=== PATIENT | female | born 1970 | race Caucasian/White ===

== ENCOUNTER 2022-10-22 09:18 | Outpatient (CLI) | payer BC, SELFPAY ==
--- NOTE | ~2022-10-22 | CT_ITS ---
EXAMINATION: CT LE LT wo con DATE: 10/22/2022 09:54 INDICATION: Left knee osteoarthritis for preoperative planning TECHNIQUE: High resolution computed tomography (CT) of the left lower limb from the hip through the a nkle was performed without intravenous contrast. Additional sagittal and coronal reconstructions were performed. Automated exposure control and iterative reconstruction technique were employed. The dose -length product was 1635.82 mGy-cm. COMPARISON: None FINDINGS: Bone alignment is normal. No fracture. Polyarticular osteoarthritis in the left lower limb, severe at the medial compartment of the right knee with remodeling of the anteromedial quadrant of the medial tibial plateau and moderate size marginal osteophytes. Additional osteoarthritis with moderate size m arginal osteophytes at both the lateral and patellofemoral compartments. Moderate osteoarthritis at t he proximal tibiofibular articulation. Mild osteoarthritis at the left hip, ankle and talonavicular j oint, the latter with associated subarticular cystlike changes. Small left knee joint effusion. Moder ate-sized Achilles calcaneal spur. Additional small enthesophytes at the patellar insertion of the qu adriceps tendon and anterolateral margin of the lateral malleolus. Soft tissues are unremarkable. No left pelvic or inguinal lymphadenopathy. IMPRESSION: 1. Tricompartmental osteoarthritis of the left knee, severe at the medial compartment. Reviewed, dictated and finalized at location A. IMPRESSION: 1. Tricompartmental osteoarthritis of the left knee, severe at the medial denae rtment.
--- NOTE | 2022-10-22 10:14 | ECG_ITS ---
Measurements Intervals [place] Rate: 60 P: -3 UT: 142 QRS: 50 QRSD: 88 T: 28 QT: 423 QTc: 423 Interpretive Statements SINUS RHYTHM BASELINE WANDER- I, II, III NORMAL ECG NO PREVIOUS ECG AVAILABLE FOR COMPARISON Electronically Signed On 10-22-2022 12:34:04 CDT by Jordon David D.O.
[2022-10-22 11:00] LABS: Hematocrit 40.6 % (37.0-47.0); Hemoglobin 12.9 g/dL (12.0-15.0)
[2022-10-22 11:09] LABS: Urine Cotinine NEGATIVE
[2022-10-22 11:11] LABS: Estimated Glomerular Filt Rate > 60; Glucose 85 mg/dL (65-110)
[2022-10-22 11:35] LABS: Hemoglobin A1C 4.9 % (<5.7)
== END 2022-10-22 09:19 | disposition home or self-care (01) ==
PROVIDERS: Visit Provider Orthopaedic Surgery
DX: M17.12 Unilateral primary osteoarthritis, left knee (principal)
CPT/HCPCS: 73700; 80307; 82040; 82565; 82947; 83036; 85014; 85018; 93005

== ENCOUNTER 2022-12-08 07:48 | Outpatient (CLI) | payer BC, SELFPAY ==
[2022-12-08 08:50] LABS: Basophils Percent Auto 0.8 % (0.2-1.2); Eosinophils Absolute Auto 0.1 K/mm3 (0-0.3); Eosinophils Percent Auto 1.9 % (0-4.4); Hematocrit 43.2 % (37.0-47.0); Hemoglobin 13.6 g/dL (12.0-15.0); Immature Granulocyte Absolute 0.01 K/mm3 (0.00-0.031); Immature Granulocyte Percent A 0.2 % (0-0.5); Lymphocytes Absolute Auto 1.53 K/mm3 (0.9-3.2); Lymphocytes Percent Auto 32.1 % (18.3-44.2); Mean Corpuscular HGB Conc 31.5 g/dl (32-36); Mean Corpuscular Hemoglobin 29.9 pg (26-34); Mean Corpuscular Volume 94.9 fl (80-100); Mean Platelet Volume 9.6 fl (7.4-10.4); Monocytes Absolute Auto 0.3 K/mm3 (0.1-0.6); Monocytes Percent Auto 6.5 % (2.6-8.5); Neutrophils Absolute Auto 2.8 K/mm3 (1.3-6.7); Neutrophils Percent Auto 58.5 % (45.5-73.1); Platelet Count Result 201 k/mm3 (150-375); Red Blood Count 4.55 M/mm3 (4.2-5.4); Red Cell Distribution Width 12.5 % (11.5-14.5); White Blood Count 4.8 K/mm3 (4.5-10.0)
[2022-12-08 08:59] LABS: Urine Cotinine NEGATIVE
[2022-12-08 09:00] LABS: Albumin Level 4.2 g/dL (3.5-5.1); Estimated Glomerular Filt Rate > 60; Glucose 91 mg/dL (65-110)
== END 2022-12-08 07:49 | disposition home or self-care (01) ==
LOC: ANHSURGERY 07:54
PROVIDERS: Visit Provider Orthopaedic Surgery
DX: Z01.812 Encounter for preprocedural laboratory examination (principal); M17.12 Unilateral primary osteoarthritis, left knee
CPT/HCPCS: 80307; 82040; 82565; 82947; 85025; 87081

== ENCOUNTER 2022-12-27 00:57 | Day surgery (SDC) | payer BC, SELFPAY ==
[2022-12-08 07:59] VITALS: BMI 32.1
--- NOTE | 2022-12-08 08:17 | PC.NURSE ---
Report to the Outpatient Waiting Room, entrance under the green pavilion located off [facility], at time _1000 on date _12/27/22 . Planned Procedure Time: __1200 . Time changes happen often and if your time is changed the preop area will call you the afternoon before. - You and your visitor will be asked to self-screen and do not enter if you have any COVID symptoms. - A mask is optional within the hospital at this time. Patients may have clear liquids (water, carbonated beverages, clear teas, apple juice) until 3 hours prior to surgery with a maximum of 20 ounces. - No food from midnight until time of surgery - Infants may have breast milk until 4 hours before surgery, formula 6 hours prior to surgery. - Children will be allowed to drink immediately following surgery. If applicable, please bring a bottle or sippy cup to assist with drinking. Juice, water, soda, and popsicles are readily available. For infants on formula, please bring formula the day of surgery. Pacifiers are allowed. Take the following medications with a SIP of water the morning of surgery: __TRAMADOL IF NEEDED FOR PAIN DO NOT STOP ANY OF YOUR OTHER PRESCRIPTION MEDICATIONS PRIOR TO SURGERY ?EXCEPT THE FOLLOWING Medications to discontinue per physician __HOLD TUMS 3 DAYS PRE OP .LAST DOSE 12/23/22 Please no make-up, nail romanian, hairspray, perfume, deodorant, or body powder the day of surgery. No jewelry (including any body piercings) or valuables the day of surgery, leave them at home. Please take a shower or bath the night before, or the morning of, surgery with an antibacterial soap. Wear comfortable, loose fitting clothing. Children are encouraged to wear pajamas. - Jewelry must be removed prior to entering the operating room. Rings and piercings that are not removed may be cut off. - The hospital will not accept responsibility for valuables. - Please leave all valuables, including medications, at home the day of surgery. If you are going home after surgery, a licensed pile driver must drive you home. - NO public transportation without another adult if you receive anesthesia. - We recommend that an adult stay with you for 24 hours following discharge. - We also recommend that you do not drive, make important decision, drink alcoholic beverages, or take any drugs that were not prescribed by your health care provider for at least 24 hours after your discharge time. For Pediatric surgeries, we recommend two adults accompany the child home. Follow any additional instructions given to you from your surgeon. If you or anyone in your household have experienced Covid symptoms in the past week, please notify your surgeon or the nurse liaison at the phone number below for possible testing. VERBAL AND WRITTEN instructions given to __PATIENT and asked if any additional questions and then verbalized understanding. Patient advised to call surgeon office or pre surgery nurse liaison [phone] if any additional questions.
[2022-12-08 08:33] VITALS: BP 118/81; PULSE 62; RESP 18; TEMP 37.3; O2SAT 100
[2022-12-27] VITALS (13 sets, daily range): BP systolic 105–127; BP diastolic 57–75; PULSE 60–91; RESP 11–16; TEMP 35.6–37.7; O2SAT 93–100
--- NOTE | ~2022-12-27 | XR_ITS ---
EXAM: [id number] DATE: 12/27/2022 15:18 HISTORY: POST OP LEFT KNEE . COMPARISON: None available. FINDINGS: Total knee arthroplasty hardware, in good position. Anterior soft tissue disruption and blake bcutaneous gas. No unexpected radiopaque foreign body. IMPRESSION: Expected postsurgical changes, with no radiographic evidence of procedure or hardware rel ated complication. Reviewed, dictated and finalized at location K. RESSOR STATION ENGINEER CHIEF IMPRESSION: Expected postsurgical changes, with no radiographic evidence of pro cedure or hardware related complication.
[2022-12-27] MEDS: ACETAMINOPHEN 500 MG TABLET 1000 MG PO ×2 (10:47→17:11)
[2022-12-27] MEDS: LACTATED RINGERS 1,000 ML 30 ML IV CONT ×2 (11:01→15:01)
[2022-12-27] MEDS: TRANEXAMIC ACID 1,000MG/ISO100 1,000 MG/100 ML BAG 200 MG IVPB (11:20)
--- NOTE | 2022-12-27 11:37 | WPDHPUPDATE1 ---
History and Physical Update Update Date/Time: 12/27/22 11:37 History and Physical has been reviewed, including an updated exam of the patient. There are NO changes in the patient's condition. Risks, benefits, and alternatives have been discussed and questions answered. Patient agrees to proceed with procedure.
--- NOTE | 2022-12-27 11:55 | P.PNAN_ITS ---
Anes - Initial Pre Proc Eval Procedure: Operation Date: 12/27/22 12:00 Proposed Procedures p Left Custom Total Knee Arthroplasty - Davy Wolfe MD Date/Time: 12/27/22 11:55 Surgeon: Davy Wolfe MD Pre Op Diagnosis: Prim O A Left Knee Patient Data Age: 52 Gender: F Height: 1.75 m Weight: 99.8 kg Last Vital Signs Temp 37.7 C H 12/27/22 11:07 Pulse 75 12/27/22 11:07 Resp 16 12/27/22 11:07 BP 105/64 12/27/22 11:07 Pulse Ox 100 12/27/22 11:07 O2 Del Method Room Air 12/27/22 11:07 Allergies Allergy/AdvReac Type Severity Reaction Status Date / Time No Known Allergies Allergy Unknown Verified 12/27/22 10:11 Home Medications Medication Instructions Recorded Confirmed Type calcium carbonate 200 mg calcium 200 mg PO BID 07/08/22 12/27/22 History (500 mg) chewable tablet (Tums) tramadol 50 mg tablet 50 mg PO Q6H PRN pain #30 tabs 11/18/22 12/27/22 Rx medroxyprogesterone 10 mg tablet 10 mg PO DAILY 12/08/22 12/27/22 History Patient hx anesthesia problems: none Family hx anesthesia problems: none Results Review: All pre-operative results and documents have been reviewed as part of the pre- operative evaluation. [facility] Past Medical History Medical History Hx of gastroesophageal reflux (GERD) (~2015) Hospitalized at [facility] Osteoporosis Surgical History Surgical History History of tooth extraction Family History Family History Father Diabetes mellitus Family history of chronic obstructive pulmonary disease Osteoarthritis Mother Family history of blood dyscrasia Osteoarthritis DVT (deep venous thrombosis) Sibling Asthma Grandparent Family history of malignant neoplasm of bone Social History Social History Smoking status: Never smoker Additional smoking assessment comments: DENIES ANY FORM OF TOBACCO USE Alcohol intake: never Lack of Transportation: No Lack of Food: Never True Current Housing: I Have Housing Concerned About Future Housing: No Difficulty Paying Gas/Electric Bills: No Difficulty Paying for Meds: No Currently Unemployed: No Education: Bachelor's Degree Difficulty w/ Childcare or Family Care: No Living arrangements: alone Spiritual care concerns: No Anes - Eval Final PreProcedure Day of Procedure 12/27/22 11:55 Patient weight: overweight Heart: regular rate and rhythm Lungs: clear to auscultation Airway: Mallampati scale class II Neurological: alert and oriented Last oral intake: >/= 8 hours ASA classification: II Emergent: no Anesthetic plan: proceed Anesthesia type and monitoring: general LMA and standard monitoring Results Review: All pre-operative results and documents have been reviewed as part of the pre- operative evaluation. Informed Consent: The patient's anesthetic plan and its attendant risks and benefits were discussed with the patient/family/POA. Questions were solicited and answers provided to the satisfaction of the patient/family/POA.
--- NOTE | 2022-12-27 12:18 | WPDANESPNB ---
Anes - Peripheral Nerve Block Date/Time: 12/27/22 12:18 I have discussed with the patient/family/POA the placement of a peripheral nerve block for post-operative pain management, including associated risks, benefits, complications, and side effects. Alternative methods of post-operative analgesia were detailed. Questions were solicited and answers provided to the satisfaction of the patient/family/POA. Time-Out: A pre-procedural Time-Out was completed immediately before starting the procedure and confirmed: Patient Identification, Site, Procedure, Patient Position and the Availability of Requisite Equipment. Clinical Indications: Acute post-operative pain management requested by the operative surgeon. Nerve Block Insertion Note Anes-nerve block: adductor canal left Patient position: supine Skin prep: chlorhexidine Needle: 22 gauge, stimulating, insulated echogenic needle. Needle length: 80 mm Technique: ultrasound Technique comment: mid2mg [id number] Injectate: bupivacaine 0.5% with epi 5 mcg/ml (30ml no epi ) and dexamethasone (mg) (4) Observations: tolerated well Complications: none Procedure start time:: 1200 Procedure end time:: 1207
[2022-12-27] MEDS: ceFAZolin 2 GM/D5W 50 ML 2 GM/50 ML BAG IVPB ×2 (12:19→20:35)
[2022-12-27] MEDS: GENTAMICIN BONE CEMENT REFOBACIN 1 EACH TOPICAL (13:01)
--- NOTE | 2022-12-27 14:46 | P.OP_ITS ---
Procedure Note - Detailed Date of Procedure 12/27/22 Pre-op Diagnosis Prim O A Left Knee Post-op Diagnosis Same Procedure Performed Total knee arthroplasty, left knee. Surgeon Davy Wolfe MD Human Services Supervisor Lizett Ramirez PA-C Anesthesia General and Regional (Subsartorial block.) Findings Physiologic laxity with slight hyperextension. -2 tibia resection. PCL quality excellent with minimal release. Description of Procedure Preoperative antibiotics were given. The limb was prepped and draped in the usual sterile fashion with a well-padded tourniquet high on the thigh. The limb was exsanguinated and the tourniquet inflated to 300 mmHg. A longitudinal incision was created just medial to the patella. A trivector approach to the knee was performed. Arthrotomy was taken down through the joint capsule. No significant releases were initially taken. The femur was exposed and the F1 jig was applied. The coring tool was used to remove the cartilage for the F2 jig to sit flush with the bone. The jig was pinned and the distal cut carefully taken. Caliper measurements confirmed appropriate bony resections according to the preoperative templated plan. The F4 cutting jig for the femur was applied, at the standard rotation. The AP and anterior chamfer cuts were taken. The F5 jig was applied and the posterior chamfer cuts were taken. The tibia was prepared using the T1 jig, after removing cartilage for the jig contact points. Proper alignment was checked with the alignment zoe. The tibia was cut using the T1u guide. Gap balancing was performed. Gap measurements were taken and the knee was trialed. Excellent alignment and soft tissue balancing was confirmed. The posterior cruciate ligament was recessed along the proximal tibia. The patella was cut for resurfacing. Three lug holes were drilled. Meniscal remnants were removed. The trial components were assembled. Excellent range of motion and proper soft tissue balancing were confirmed throughout the full range of motion. Patellar tracking was excellent. The knee was copiously irrigated periodically throughout the procedure. The real implants were cemented into position. Excess cement was carefully removed. The wound was closed in layers with interrupted #1 Vicryl suture, #2 strata fix suture, 2-0 strata fix suture, 3-0 strata fix suture. Steri-Strips placed on the skin with the knee flexed. Sterile bulky dressing applied. The patient was brought to the recovery room in stable condition. There were no complications. Physician assistant director of plant operations, Lizett Ramirez PA-C, required for surgery; including patient positioning, draping, tissue retraction, maintaining instrument position, cement removal, wound closure, and dressing placement. Implants Conform[employer] Imprint total knee arthroplasty. Cemented. Cruciate retaining. 8 mm insert. 35 mm round patella. Estimated Blood Loss 200 Drains No Complications No immediate complications Condition Stable Disposition PACU [facility] Billing Surgery - Charge Forward: Surgery Billing
[2022-12-27] MEDS: fentaNYL CITRATE INJ (*CRX) 100 MCG/2 ML VIAL 25 MCG IV PUSH ×4 (15:14→15:27)
[2022-12-27] MEDS: ONDANSETRON INJ 4 MG/2 ML VIAL IV PUSH ×2 (15:25→19:00)
[2022-12-27] MEDS: diphenhydrAMINE HCl INJ 50 MG/ML VIAL 25 MG IV PUSH (15:30)
[2022-12-27] MEDS: SCOPOLAMINE 1.5 MG PATCH TRANSDERM (15:53)
[2022-12-27] MEDS: HYDROmorphone HCL INJ (*CRX) 1 MG/ML SYR 0.5 MG IV PUSH ×2 (16:23→16:31)
--- NOTE | 2022-12-27 16:45 | PC.NURSE ---
This patient, Shawnee Tidwell, was admitted to 3 [facility] Surg Room 302-01. Patient/family oriented to hospital policies and general routines including ID bracelet, bed and alarms, visiting hours, pain management, procedures, bathroom and other care routines, personal items, smoking policy, room service/diet, and visiting hours. Information on how to activate the Rapid Response Team has been discussed. Patient/Family are encouraged to report perceived risks to care and to ask questions if they do not understand what they are told or what they should do.
[2022-12-27] MEDS: SODIUM CHLORIDE 0.9% IV 1,000 ML 125 ML IV CONT (16:59)
[2022-12-27] MEDS: CALCIUM CARBONATE (TUMS) 500 MG (200 MG ELEMENTAL) PO (17:00)
[2022-12-27] MEDS: MELOXICAM 7.5 MG TABLET PO (17:11)
[2022-12-27] MEDS: ASPIRIN 81 MG ENTERIC TABLET PO (17:11)
[2022-12-27] MEDS: oxyCODONE HCL (*CRX) 5 MG TAB IR PO (22:20)
[2022-12-28] VITALS: BP 90/49; PULSE 64; RESP 14; TEMP 36.7; O2SAT 96
[2022-12-28] MEDS: ACETAMINOPHEN 500 MG TABLET 1000 MG PO ×3 (00:18→11:39)
[2022-12-28] MEDS: ceFAZolin 2 GM/D5W 50 ML 2 GM/50 ML BAG IVPB ×2 (03:33→11:40)
--- NOTE | 2022-12-28 03:52 | PC.NURSE ---
Pt tolerating using SaraStedy well without difficulties throughout the night to be transported to bathroom. 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 Pt states she feels great. Pt moving around in bed well and participates in self care. Pt tolerating diet well without difficulties.
[2022-12-28 04:00] VITALS: BP 93/64; PULSE 66; RESP 16; TEMP 37.2; O2SAT 99
[2022-12-28 07:14] LABS: Basophils Percent Auto 0.2 % (0.2-1.2); Hematocrit 36.9 % (37.0-47.0); Hemoglobin 11.3 g/dL (12.0-15.0); Immature Granulocyte Absolute 0.05 K/mm3 (0.00-0.031); Immature Granulocyte Percent A 0.5 % (0-0.5); Lymphocytes Absolute Auto 1.01 K/mm3 (0.9-3.2); Lymphocytes Percent Auto 9.2 % (18.3-44.2); Mean Corpuscular HGB Conc 30.6 g/dl (32-36); Mean Corpuscular Hemoglobin 29.6 pg (26-34); Mean Corpuscular Volume 96.6 fl (80-100); Monocytes Absolute Auto 0.6 K/mm3 (0.1-0.6); Monocytes Percent Auto 5.5 % (2.6-8.5); Neutrophils Absolute Auto 9.3 K/mm3 (1.3-6.7); Neutrophils Percent Auto 84.6 % (45.5-73.1); Platelet Count Result 187 k/mm3 (150-375); Red Blood Count 3.82 M/mm3 (4.2-5.4); Red Cell Distribution Width 12.6 % (11.5-14.5)
[2022-12-28 07:28] LABS: Anion Gap 3 mmol/L (8-16); Blood Urea Nitrogen 12 mg/dL (7-17); Calcium 8.6 mg/dL (8.4-10.2); Carbon Dioxide 26 mmol/L (22-30); Chloride 106 mmol/L (98-107); Estimated CRCL calculation 103 ml/min; Estimated Glomerular Filt Rate > 60; Glucose 90 mg/dL (65-110); Potassium 4.1 mmol/L (3.4-5.0); Sodium 135 mmol/L (137-145)
[2022-12-28 08:00] VITALS: BP 99/63; PULSE 75; RESP 16; TEMP 36.3; O2SAT 97
--- NOTE | 2022-12-28 08:04 | P.PNAN_ITS ---
Anes - Prog Note Post-Op Date/Time: 12/28/22 08:04 Cardiovascular status: normal Respiratory status: normal Airway patency: baseline Mental status: baseline Post-Op hydration status: normal Vital Signs: Last Vital Signs Temp 37.2 C 12/28/22 04:00 Pulse 66 12/28/22 04:00 Resp 16 12/28/22 04:00 BP 93/64 L 12/28/22 04:00 Pulse Ox 99 12/28/22 04:00 O2 Del Method Room Air 12/27/22 20:00 O2 Flow Rate 6 12/27/22 15:01 Pain Score (VAS): 0 I/O: Intake & Output 12/27/22 12/28/22 12/28/22 23:59 07:59 15:59 Intake Total 950 1050 Balance 950 1050 Laboratory Tests 12/28/22 06:15 12/28/22 06:15 12/27/22 12/28/22 11:03 06:15 WBC 11.0 H RBC 3.82 L Hgb 11.3 L Hct 36.9 L MCV 96.6 MCH 29.6 MCHC 30.6 L RDW 12.6 Plt Count 187 MPV 10.0 Immature Gran % (Auto) 0.5 Neut % (Auto) 84.6 H Lymph % (Auto) 9.2 L [place] % (Auto) 5.5 Eos % (Auto) 0.0 Baso % (Auto) 0.2 Lymph # (Auto) 1.01 [place] # (Auto) 0.6 Eos # (Auto) 0.0 Baso # (Auto) 0.0 Abs Immat Gran (auto) 0.05 H Absolute Neuts (auto) 9.3 H Absolute Nucleated RBC 0.0 Nucleated RBC % 0.0 Sodium 135 L Potassium 4.1 Chloride 106 Carbon Dioxide 26 Anion Gap 3 L BUN 12 Creatinine 0.70 Estim Creat Clear Calc 103 Estimated GFR > 60 Glucose 90 Calcium 8.6 Blood Type O Positive Antibody Screen Negative Post-procedural complaints: none Patient Feedback: Patient satisfied with anesthetic care.
[2022-12-28] MEDS: ASPIRIN 81 MG ENTERIC TABLET PO (08:53)
[2022-12-28] MEDS: MELOXICAM 7.5 MG TABLET PO (08:53)
[2022-12-28] MEDS: SENNA/DOCUSATE SODIUM TABLET 2 TAB PO (08:54)
[2022-12-28] MEDS: CALCIUM CARBONATE (TUMS) 500 MG (200 MG ELEMENTAL) PO (08:54)
[2022-12-28] MEDS: polyethylene glycoL 3350 17 GM POWD.PACK PO (08:56)
[2022-12-28] MEDS: predniSONE 5 MG TABLET PO (08:56)
--- NOTE | 2022-12-28 10:21 | PM.DS ---
DS: Admitting Diagnosis Discharge Date 12/28/22 Admitting Diagnosis OA knee Left DS: Discharge Diagnosis Discharge Diagnosis (1) Status post total left knee replacement: Code(s): Z96.652 - Presence of left artificial knee joint Status: Acute Assessment and Plan: Postop day 1: Left total knee arthroplasty. Patient tolerated procedure well. No complications. Pain manageable with pain medication. No numbness or tingling. We had a lengthy discussion regarding postoperative wound care, limitations, expectations, and exercises. Patient shows good understanding. She has had initial physical therapy and is tolerating it well. DVT prophylaxis: 81 mg baby aspirin b.i.d. for 14 days. Pain medication: Percocet. Patient has followup appointment with Dr. Wolfe in 3 weeks. DS: Summary Hospital Course Reason for hospitalization: Total knee arthroplasty Hospital Course: Patient tolerated procedure well. Has had initial PT/OT. Status at Discharge Functional status at discharge: uses cane/walker Overall status at discharge: patient is progressing back to baseline Time Spent with Patient Time attestation: Total time spent providing and/or coordinating discharge services: Exam Narrative: 52-year-old overweight female. Resting comfortably in bed. Alert and oriented x3. No acute distress. Wearing compression socks bilaterally. Dressing intact without drainage. Moderate swelling. No ecchymosis. Mild erythema. No hematoma. Range of motion limited due to pain. Calf nontender. Neurologic status intact. No varicosities. Distal pulses palpable. DS: Data Data Completed and Pending Labs on day of discharge: Labs from last 24 hours 12/28/22 12/27/22 06:15 11:03 WBC 11.0 H RBC 3.82 L Hgb 11.3 L Hct 36.9 L MCV 96.6 MCH 29.6 MCHC 30.6 L RDW 12.6 Plt Count 187 MPV 10.0 Immature Gran % (Auto) 0.5 Neut % (Auto) 84.6 H Lymph % (Auto) 9.2 L [place] % (Auto) 5.5 Eos % (Auto) 0.0 Baso % (Auto) 0.2 Lymph # (Auto) 1.01 [place] # (Auto) 0.6 Eos # (Auto) 0.0 Baso # (Auto) 0.0 Abs Immat Gran (auto) 0.05 H Absolute Neuts (auto) 9.3 H Absolute Nucleated RBC 0.0 Nucleated RBC % 0.0 Sodium 135 L Potassium 4.1 Chloride 106 Carbon Dioxide 26 Anion Gap 3 L BUN 12 Creatinine 0.70 Estim Creat Clear Calc 103 Estimated GFR > 60 Glucose 90 Calcium 8.6 Blood Type O Positive Antibody Screen Negative Discharge Plan Discharge Patient Disposition: Home, Self-Care Discharge Instructions: See green instruction sheets Remove the Scopolamine patch that was placed behind your ear in 72 hours or less. Wash your hands after touching. Stand Alone Forms: General Discharge Instructions Follow-up/Referrals: Lizett Ramirez PA [Physician Shearing Machine Tender] - Discharge Medications: New meloxicam 15 mg tablet 15 mg PO DAILY Qty: 30 0RF Rx Instructions: Cut in half. Take 1/2 in morning and 1/2 at night. Take with food. Stop if stomach upset. prednisone 5 mg tablet 5 mg PO DAILY 21 Days Qty: 21 0RF aspirin 81 mg tablet,delayed release (DR/EC) 81 mg PO BID 14 Days Qty: 28 0RF oxycodone-acetaminophen 5-325 mg tablet 1 - 2 tablet PO Q4-6H MDD 6 PRN (Reason: pain) Qty: 30 0RF Continued calcium carbonate [Tums] 200 mg calcium (500 mg) tablet,chewable 200 mg PO BID medroxyprogesterone 10 mg tablet 10 mg PO DAILY tramadol 50 mg tablet 50 mg PO Q6H PRN (Reason: pain) Qty: 30 0RF
[2022-12-28 11:57] VITALS: BP 121/67; PULSE 77; RESP 16; TEMP 36.6; O2SAT 100
== END 2022-12-28 13:20 | disposition home or self-care (01) ==
LOC: ANHSURGERY 15:45 → ANH3MEDSUR 16:38
PROVIDERS: Physician Assistant Surgical; Visit Provider Orthopaedic Surgery
PROC: (CPT 27447; principal; 2022-12-27 12:00)
DX: M17.12 Unilateral primary osteoarthritis, left knee (principal); G89.18 Other acute postprocedural pain; Z79.899 Other long term (current) drug therapy
CPT/HCPCS: 27447; 64447; 36415; 73560; 80048; 80307; 82040; 82565; 82947; 85025; 86850; 86900; 86901; 87081; 97110; 97161; 97165; 97530; A9270; C1713; C1776; J0171; J0690; J1100; J1170; J1200; J1885; J2250; J2270; J2405; J2704; J2795; J3010; J7030; J7120; J7512

== ENCOUNTER 2023-01-31 11:42 | Outpatient (CLI) | payer BC, SELFPAY ==
--- NOTE | ~2023-01-31 | MM_ITS ---
EXAMINATION: MM screening [place] BI w shannan HISTORY: Screening TECHNIQUE: Craniocaudal and mediolateral oblique 3-D tomosynthesis images were obtained and synthetic 2-D images were generated. CAD analysis was submitted and interpreted. COMPARISON: No prior mammogram is available for comparison at this institution. BREAST PARENCHYMAL COMPOSITION: There are scattered areas of fibroglandular density. FINDINGS: There is no evidence of suspicious mass, calcification, or architectural distortion to sugg est malignancy in either breast. There has been no suspicious interval change. IMPRESSION: 1. No mammographic evidence of malignancy. 2. Recommend routine screening mammography in one year. BI-RADS Category 1: Negative Reviewed, dictated and finalized at location A. D SPECIALIST
== END 2023-01-31 11:43 | disposition home or self-care (01) ==
LOC: ANHIMG 11:43
PROVIDERS: Visit Provider Obstetrics & Gynecology
DX: Z12.31 Encounter for screening mammogram for malignant neoplasm of breast (principal)
CPT/HCPCS: 77063; 77067

== ENCOUNTER 2023-02-16 10:30 | Outpatient (CLI) | payer BC, SELFPAY ==
--- NOTE | ~2023-02-16 | XR_ITS ---
EXAMINATION: XR knee LT 3V DATE: 02/16/2023 10:51 INDICATION: Left knee arthroplasty. Postop. TECHNIQUE: 3 views of left knee including standing views were obtained. COMPARISON: Left knee radiographs 01/17/2023 FINDINGS: There is a total left knee arthroplasty with patellar resurfacing in near-anatomic alignmen t. No fracture. No periprosthetic lucency to suggest loosening or infection. No knee joint effusion. IMPRESSION: 1. Total left knee arthroplasty in near-anatomic alignment. Reviewed, dictated and finalized at location E. UCE LABORER
== END 2023-02-16 10:31 | disposition home or self-care (01) ==
LOC: ANHIMG 10:35
PROVIDERS: Visit Provider Orthopaedic Surgery
DX: Z47.1 Aftercare following joint replacement surgery (principal)
CPT/HCPCS: 73562

== ENCOUNTER 2023-04-18 08:24 | Outpatient (CLI) | payer BC, SELFPAY ==
--- NOTE | ~2023-04-18 | XR_ITS ---
EXAMINATION: XR knee RT min 4V DATE: 04/18/2023 08:45 INDICATION: Right knee pain TECHNIQUE: Four views of the right knee were obtained. COMPARISON: None. FINDINGS: Alignment is normal. No acute fracture or osteochondral lesion. And old healed fracture of the proximal fibula is noted. There is tricompartmental osteoarthritis of the right knee, severe in t he patellofemoral compartment. No joint effusion/synovitis. Soft tissues are unremarkable. IMPRESSION: 1. Osteoarthritis without acute osseous abnormality. Reviewed, dictated and finalized at location B. OF MEN
--- NOTE | ~2023-04-18 | XR_ITS ---
Left Knee Technique: AP, lateral, and sunrise views were obtained. Clinical History: Prosthesis COMPARISON: 02/16/2023 Findings: No fracture or dislocation is seen. Osseous alignment is anatomic. Left knee arthroplasty i ntact. Soft tissues are unremarkable. No joint effusion is seen. Impression: No acute abnormality. Left knee arthroplasty. Reviewed, dictated and finalized at location . ERY STARTER Impression: No acute abnormality. Left knee arthroplasty.
== END 2023-04-18 08:25 | disposition home or self-care (01) ==
LOC: ANHIMG 08:27
PROVIDERS: Visit Provider Orthopaedic Surgery
DX: M17.11 Unilateral primary osteoarthritis, right knee (principal); Z96.652 Presence of left artificial knee joint
CPT/HCPCS: 73562; 73564

== ENCOUNTER 2023-05-10 07:41 | Outpatient (CLI) | payer BC, SELFPAY ==
--- NOTE | ~2023-05-10 | CT_ITS ---
EXAMINATION: CT LE RT wo con DATE: 05/10/2023 08:06 INDICATION: Primary osteoarthritis of the right knee for preoperative planning TECHNIQUE: High resolution computed tomography (CT) of the right lower extremity from the hip through the ankle was performed without intravenous contrast. Additional sagittal and coronal reconstruction s were performed. Automated exposure control and iterative reconstruction technique were employed. Th e dose-length product was 1909.73 mGy-cm. COMPARISON: None FINDINGS: Bone alignment is normal. No fracture. There is a chronic subtle expansile sclerotic lesion which ext ends for 9 cm proximal to distal filling the intramedullary space of the proximal right fibula can be seen dating back to radiograph dated 07/23/2022. 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 No other suspicious lytic or blastic b one lesions. Marginal osteophytes consistent with osteoarthritis involving all 3 compartments of the right knee. There is mild joint space narrowing in the medial and lateral compartments which could be underestimated on nonweightbearing imaging. A couple heterotopic ossicles versus degenerative loose osteochondral bodies along the superolateral rim of the patella. No right knee joint effusion. Additi onal mild polyarticular osteoarthritis at the right hip, ankle and a few joints in the right midfoot . More severe osteoarthritis at the second tarsal metatarsal and second and third intermetatarsal denzel nts with subarticular cystic change at the base of the second metatarsal. Visualized pelvis is unrema rkable. No pathologically enlarged pelvic or inguinal lymphadenopathy. Musculature of the right leg i s unremarkable. IMPRESSION: 1. Polyarticular osteoarthritis throughout the right lower limb including tricompartmental osteoarthr itis at the right knee and moderate osteoarthritis with subarticular cystic change at the right midfo ot. 2. 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 Reviewed, dictated and finalized at location A. IMPRESSION: 1. Polyarticular osteoarthritis throughout the right lower limb including trico mpartmental osteoarthritis at the right knee and moderate osteoarthritis with s ubarticular cystic change at the right midfoot. 2. 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
== END 2023-05-10 07:42 | disposition home or self-care (01) ==
PROVIDERS: Visit Provider Orthopaedic Surgery
DX: M17.11 Unilateral primary osteoarthritis, right knee (principal)
CPT/HCPCS: 73700

== ENCOUNTER 2023-07-13 08:48 | Outpatient (CLI) | payer BC, SELFPAY ==
[2023-07-13 09:10] LABS: Hematocrit 43.9 % (37.0-47.0); Hemoglobin 13.6 g/dL (12.0-15.0)
[2023-07-13 09:23] LABS: Albumin Level 4.2 g/dL (3.5-5.1); Estimated Glomerular Filt Rate > 60; Glucose 87 mg/dL (65-110)
[2023-07-13 09:51] LABS: Basophils Percent Auto 0.9 % (0.2-1.2); Eosinophils Absolute Auto 0.1 K/mm3 (0-0.3); Eosinophils Percent Auto 1.7 % (0-4.4); Immature Granulocyte Absolute 0.01 K/mm3 (0.00-0.031); Immature Granulocyte Percent A 0.2 % (0-0.5); Lymphocytes Absolute Auto 1.05 K/mm3 (0.9-3.2); Lymphocytes Percent Auto 22.5 % (18.3-44.2); Mean Corpuscular HGB Conc 31.4 g/dl (32-36); Mean Corpuscular Hemoglobin 29.7 pg (26-34); Mean Corpuscular Volume 94.7 fl (80-100); Mean Platelet Volume 9.7 fl (7.4-10.4); Monocytes Absolute Auto 0.3 K/mm3 (0.1-0.6); Neutrophils Absolute Auto 3.2 K/mm3 (1.3-6.7); Neutrophils Percent Auto 68.7 % (45.5-73.1); Platelet Count Result 225 k/mm3 (150-375); Red Blood Count 4.54 M/mm3 (4.2-5.4); Red Cell Distribution Width 12.7 % (11.5-14.5); White Blood Count 4.7 K/mm3 (4.5-10.0)
[2023-07-13 10:06] LABS: Hemoglobin A1C 4.8 % (<5.7)
[2023-07-13 11:25] LABS: Urine Cotinine NEGATIVE
[2023-07-13 12:41] LABS: MRSA (PCR) NOT DETECTED (NOT DETECTE)
== END 2023-07-13 08:49 | disposition home or self-care (01) ==
LOC: ANHLAB 08:50
PROVIDERS: Visit Provider Orthopaedic Surgery
DX: Z01.818 Encounter for other preprocedural examination (principal); M17.11 Unilateral primary osteoarthritis, right knee
CPT/HCPCS: 36415; 80307; 82040; 82565; 82947; 83036; 85025; 87641

== ENCOUNTER 2023-08-08 01:21 | Day surgery (SDC) | payer BC, SELFPAY ==
--- NOTE | 2023-07-13 09:56 | PC.NURSE ---
Report to the Outpatient Waiting Room, entrance under the green pavilion located off [facility], at time __10:00AM on date ___08/08/23____. Planned Procedure Time: __12:00PM . Time changes happen often and if your time is changed the preop area will call you the afternoon before. - You and your visitor will be asked to self-screen and do not enter if you have any COVID symptoms. - A mask is optional within the hospital at this time. Patients may have clear liquids (water, carbonated beverages, clear teas, apple juice) until 3 hours prior to surgery with a maximum of 20 ounces. - No food from midnight until time of surgery. Take the following medications with a SIP of water the morning of surgery: ____NONE DO NOT STOP ANY OF YOUR OTHER PRESCRIPTION MEDICATIONS PRIOR TO SURGERY ?EXCEPT THE FOLLOWING Medications to discontinue per physician ____HOLD ALL NSAIDS(IBUPROFEN) 7 DAYS PRE-OP PER DR MENDOZA Date to take last dose 07/31/23 Please no make-up, nail divehi, hairspray, perfume, deodorant, or body powder the day of surgery. No jewelry (including any body piercings) or valuables the day of surgery, leave them at home. Please take a shower or bath the night before, or the morning of, surgery with an antibacterial soap. Wear comfortable, loose fitting clothing. - Jewelry must be removed prior to entering the operating room. Rings and piercings that are not removed may be cut off. - The hospital will not accept responsibility for valuables. - Please leave all valuables, including medications, at home the day of surgery. If you are going home after surgery, a licensed street flusher driver must drive you home. - NO public transportation without another adult if you receive anesthesia. - We recommend that an adult stay with you for 24 hours following discharge. - We also recommend that you do not drive, make important decision, drink alcoholic beverages, or take any drugs that were not prescribed by your health care provider for at least 24 hours after your discharge time. Follow any additional instructions given to you from your surgeon. If you or anyone in your household have experienced Covid symptoms in the past week, please notify your surgeon or the nurse liaison at the phone number below for possible testing. Telephone instructions given to ___PATIENT and asked if any additional questions and then verbalized understanding. Patient advised to call surgeon office or pre surgery nurse liaison [phone] if any additional questions.
[2023-07-13 10:10] VITALS: BP 113/66; PULSE 65; RESP 16; TEMP 37.2; O2SAT 100; BMI 34.4
[2023-08-08] VITALS (13 sets, daily range): BP systolic 101–144; BP diastolic 53–81; PULSE 60–101; RESP 9–20; TEMP 36.2–36.7; O2SAT 66–100
--- NOTE | ~2023-08-08 | XR_ITS ---
EXAMINATION: [id number] DATE: 08/08/2023 15:17 INDICATION: Postoperative evaluation following right total knee arthroplasty. TECHNIQUE: Anteroposterior and lateral views of the right knee were obtained. COMPARISON: CT dated 05/10/2023 FINDINGS: Right total knee arthroplasty with patellar resurfacing appears well seated and in near anatomic alig nment. No acute fractures identified. Mildly expansile nonaggressive lucent lesion in the proximal fi bula with narrow zone of transition and groundglass matrix, bladder appreciated on prior CT consisten t with fibrous dysplasia. Expected postoperative subcutaneous and intra-articular gas. IMPRESSION: 1. Right total knee arthroplasty, negative for postoperative purposes. 2. Fibrous dysplasia the proximal right fibula. Reviewed, dictated and finalized at location A.
[2023-08-08] MEDS: ACETAMINOPHEN 500 MG TABLET 1000 MG PO (11:32)
--- NOTE | 2023-08-08 11:40 | WPDHPUPDATE1 ---
History and Physical Update Update Date/Time: 08/08/23 11:40 History and Physical has been reviewed, including an updated exam of the patient. There are NO changes in the patient's condition. Risks, benefits, and alternatives have been discussed and questions answered. Patient agrees to proceed with procedure.
--- NOTE | 2023-08-08 11:56 | WPDANESEPPF ---
Anes - Initial Pre Proc Eval Procedure: Operation Date: 08/08/23 12:00 Proposed Procedures p Custom Right Total Knee Arthroplasty - Davy Wolfe MD Date/Time: 08/08/23 11:56 Surgeon: Davy Wolfe MD Pre Op Diagnosis: Prim O A Rt Knee Patient Data Age: 53 Gender: F Height: 1.73 m Weight: 102.8 kg Last Vital Signs Temp 99.0 F 07/13/23 10:10 Pulse 65 07/13/23 10:10 Resp 16 07/13/23 10:10 BP 113/66 07/13/23 10:10 Pulse Ox 100 07/13/23 10:10 O2 Del Method Room Air 07/13/23 10:10 Allergies Allergy/AdvReac Type Severity Reaction Status Date / Time No Known Allergies Allergy Unknown Verified 08/08/23 11:11 Home Medications Medication Instructions Recorded Confirmed Type medroxyprogesterone 10 mg tablet 10 mg PO DAILY 12/08/22 07/13/23 History acetaminophen 500 mg tablet 1,000 mg PO Q6H PRN Pain 07/13/23 07/13/23 History (Acetaminophen Extra Strength) calcium carbonate 500 mg PO BID PRN Indigestion 07/13/23 07/13/23 History ibuprofen 800 mg tablet 800 mg PO TID PRN Pain 07/13/23 07/13/23 History Patient hx anesthesia problems: none Family hx anesthesia problems: none Results Review: All pre-operative results and documents have been reviewed as part of the pre-operative evaluation. [facility] Past Medical History Medical History Hx of gastroesophageal reflux (GERD) (~2015) Hospitalized at [facility] Osteoporosis Surgical History Surgical History History of tooth extraction Status post total left knee replacement (~12/27/22) Family History Family History Father Diabetes mellitus Family history of chronic obstructive pulmonary disease Osteoarthritis Mother Family history of blood dyscrasia Osteoarthritis DVT (deep venous thrombosis) Sibling Asthma Grandparent Family history of malignant neoplasm of bone Social History Social History Smoking status: Never smoker Additional smoking assessment comments: DENIES ANY FORM OF TOBACCO USE Alcohol intake: never Substance use: never Do You Feel Safe in your Home?: Yes Lack of Transportation: No Lack of Food: Never True Current Housing: I Have Housing Concerned About Future Housing: No Difficulty Paying Gas/Electric Bills: No Difficulty Paying for Meds: No Currently Unemployed: No Education: Bachelor's Degree Difficulty w/ Childcare or Family Care: Decline to Answer Living arrangements: alone Spiritual care concerns: No Anes - Eval Final PreProcedure Day of Procedure 08/08/23 11:56 Patient weight: obese Heart: regular rate and rhythm Lungs: clear to auscultation Airway: Mallampati scale class II Neurological: alert and oriented Last oral intake: >/= 8 hours ASA classification: II Emergent: no Anesthetic plan: proceed Anesthesia type and monitoring: general LMA and standard monitoring Results Review: All pre-operative results and documents have been reviewed as part of the pre-operative evaluation. Osteoporosis, GERD, overall well controlled. Informed Consent: The patient's anesthetic plan and its attendant risks and benefits were discussed with the patient/family/POA. Questions were solicited and answers provided to the satisfaction of the patient/family/POA.
[2023-08-08] MEDS: LACTATED RINGERS 1,000 ML 30 ML IV CONT ×2 (11:58→15:06)
[2023-08-08] MEDS: TRANEXAMIC ACID 1,000MG/ISO100 1,000 MG/100 ML BAG 200 MG IVPB (12:11)
--- NOTE | 2023-08-08 12:29 | WPDANESPNB ---
Anes - Peripheral Nerve Block Date/Time: 08/08/23 12:29 I have discussed with the patient/family/POA the placement of a peripheral nerve block for post-operative pain management, including associated risks, benefits, complications, and side effects. Alternative methods of post-operative analgesia were detailed. Questions were solicited and answers provided to the satisfaction of the patient/family/POA. Time-Out: A pre-procedural Time-Out was completed immediately before starting the procedure and confirmed: Patient Identification, Site, Procedure, Patient Position and the Availability of Requisite Equipment. Clinical Indications: Acute post-operative pain management requested by the operative surgeon. Nerve Block Insertion Note Anes-nerve block: adductor canal right Patient position: supine Skin prep: chlorhexidine Needle: 22 gauge, stimulating, insulated echogenic needle. Needle length: 80 mm Technique: ultrasound Injectate: other (Bupiv 0.5%, 15 mls. ) Observations: tolerated well Procedure start time:: 1220 Procedure end time:: 122
[2023-08-08] MEDS: ceFAZolin 2 GM/D5W 50 ML 2 GM/50 ML BAG IVPB ×2 (12:32→20:36)
[2023-08-08] MEDS: SODIUM CHLORIDE 0.9% IV 37.7 ML, MORPHINE SULFATE INJ (*CRX) 2 MG, ROPivacaine HCL 1% 2... INFILTRATE (13:20)
[2023-08-08] MEDS: fentaNYL CITRATE INJ (*CRX) 100 MCG/2 ML VIAL 25 MCG IV PUSH ×5 (15:14→16:06)
[2023-08-08] MEDS: ONDANSETRON INJ 4 MG/2 ML VIAL IV PUSH ×2 (15:33→17:15)
--- NOTE | 2023-08-08 15:39 | P.OP_ITS ---
Procedure Note - Detailed Date of Procedure 08/08/23 Pre-op Diagnosis Prim O A Rt Knee Post-op Diagnosis Same Procedure Performed Total knee arthroplasty, right. Surgeon Davy Wolfe MD Tester Compressed Gases Lizett Ramirez PA-C Anesthesia General and Regional (Subsartorial block.) Findings Severe patellofemoral disease and significant cartilage breakdown of the medial and lateral femoral condyles. Custom knee with an optimal fit. Partial PCL release. Description of Procedure Preoperative antibiotics were given. The limb was prepped and draped in the usual sterile fashion with a well-padded tourniquet high on the thigh. The limb was exsanguinated and the tourniquet inflated to 300 mmHg during the exposure and cementation. A longitudinal incision was created just medial to the patella. A subvastus approach to the knee was performed. Arthrotomy was taken down through the joint capsule. No significant releases were initially taken. The femur was exposed and the F1 jig was applied. The coring tool was used to remove the cartilage for the F2 jig to sit flush with the bone. The jig was pinned and the distal cut carefully taken. Caliper measurements confirmed appropriate bony resections according to the preoperative templated plan. The F4 cutting jig for the femur was applied, at the standard rotation. The AP and anterior chamfer cuts were taken. The F5 jig was applied and the posterior chamfer cuts were taken. The tibia was prepared using the T1 jig, after removing cartilage for the jig contact points. Proper alignment was checked with the alignment zoe. The tibia was cut using the T1u guide. Gap balancing was performed. Gap measurements were taken and the knee was trialed. Excellent alignment and soft tissue balancing was confirmed. The posterior cruciate ligament was recessed along the proximal tibia. The patella was cut for resurfacing. Three lug holes were drilled. Meniscal remnants were removed. The trial components were assembled. Excellent range of motion and proper soft tissue balancing were confirmed throughout the full range of motion. Patellar tracking was excellent. The knee was copiously irrigated periodically throughout the procedure. The real implants were cemented into position. Excess cement was carefully removed. The wound was closed in layers with interrupted #1 Vicryl suture, 2-0 strata fix suture, 0 strata fix suture, 2-0 strata fix suture. Steri-Strips placed on the skin with the knee flexed. Sterile bulky dressing applied. The patient was brought to the recovery room in stable condition. There were no complications. Physician technical support assistant, Lizett Ramirez PA-C, required for surgery; including patient positioning, draping, tissue retraction, maintaining instrument position, cement removal, wound closure, and dressing placement. Implants Conformis Custom total knee arthroplasty. Cemented. Cruciate retaining. 6A insert. 38 mm oval patella. Estimated Blood Loss 100 Drains No Complications No immediate complications Condition Stable Disposition PACU [facility] Billing Surgery - Charge Forward: Surgery Billing
--- NOTE | 2023-08-08 16:35 | ADMGEN ---
This patient, Shawnee Tidwell, was admitted to Medical Room 253-01. Patient/family oriented to hospital policies and general routines including ID bracelet, bed and alarms, visiting hours, pain management, procedures, bathroom and other care routines, personal items, smoking policy, room service/diet, and visiting hours. Information on how to activate the Rapid Response Team has been discussed. Patient/Family are encouraged to report perceived risks to care and to ask questions if they do not understand what they are told or what they should do.
[2023-08-08] MEDS: SENNA/DOCUSATE SODIUM TABLET 2 TAB PO (16:55)
[2023-08-08] MEDS: predniSONE 5 MG TABLET PO (16:55)
[2023-08-08] MEDS: oxyCODONE/ACETAMINOPHEN (*CRX) 5-325 MG TABLET 1 TABLET PO ×2 (16:55→23:39)
[2023-08-08] MEDS: SODIUM CHLORIDE 0.9% IV 1,000 ML 125 ML IV CONT (16:55)
[2023-08-08] MEDS: ASPIRIN 81 MG ENTERIC TABLET PO (20:36)
[2023-08-08] MEDS: FAMOTIDINE 20 MG TABLET PO (20:37)
[2023-08-08] MEDS: ACETAMINOPHEN 325 MG TABLET 650 MG PO (23:15)
[2023-08-09] MEDS: ceFAZolin 2 GM/D5W 50 ML 2 GM/50 ML BAG IVPB ×2 (03:50→11:15)
[2023-08-09 04:04] VITALS: BP 100/52; PULSE 67; RESP 20; TEMP 36.6; O2SAT 96
[2023-08-09 05:58] LABS: Basophils Percent Auto 0.2 % (0.2-1.2); Hematocrit 34.3 % (37.0-47.0); Hemoglobin 10.9 g/dL (12.0-15.0); Immature Granulocyte Absolute 0.02 K/mm3 (0.00-0.031); Immature Granulocyte Percent A 0.2 % (0-0.5); Lymphocytes Absolute Auto 0.64 K/mm3 (0.9-3.2); Lymphocytes Percent Auto 7.7 % (18.3-44.2); Mean Corpuscular HGB Conc 31.8 g/dl (32-36); Mean Corpuscular Hemoglobin 30.2 pg (26-34); Mean Platelet Volume 9.9 fl (7.4-10.4); Monocytes Absolute Auto 0.5 K/mm3 (0.1-0.6); Monocytes Percent Auto 5.4 % (2.6-8.5); Neutrophils Absolute Auto 7.2 K/mm3 (1.3-6.7); Neutrophils Percent Auto 86.5 % (45.5-73.1); Platelet Count Result 168 k/mm3 (150-375); Red Blood Count 3.61 M/mm3 (4.2-5.4); Red Cell Distribution Width 12.5 % (11.5-14.5); White Blood Count 8.4 K/mm3 (4.5-10.0)
[2023-08-09 06:07] LABS: Anion Gap 3 mmol/L (4-12); Blood Urea Nitrogen 11 mg/dL (7-17); Calcium 8.4 mg/dL (8.4-10.2); Carbon Dioxide 26 mmol/L (22-30); Chloride 109 mmol/L (98-107); Estimated CRCL calculation 104 ml/min; Estimated Glomerular Filt Rate > 60; Glucose 122 mg/dL (65-110); Potassium 4.4 mmol/L (3.4-5.0); Sodium 138 mmol/L (137-145)
[2023-08-09] MEDS: ACETAMINOPHEN 325 MG TABLET 650 MG PO ×2 (06:08→11:14)
--- NOTE | 2023-08-09 08:56 | WPDANESPN ---
Anes - Prog Note Post-Op Date/Time: 08/09/23 08:56 Cardiovascular status: normal Respiratory status: normal Airway patency: baseline Mental status: baseline Post-Op hydration status: normal Vital Signs: Last Vital Signs Temp 36.6 C 08/09/23 04:04 Pulse 67 08/09/23 04:04 Resp 20 08/09/23 04:04 BP 100/52 L 08/09/23 04:04 Pulse Ox 96 08/09/23 04:04 O2 Del Method Room Air 08/09/23 08:33 O2 Flow Rate 8 08/08/23 15:20 Pain Score (VAS): 3 I/O: Intake & Output 08/08/23 08/09/23 08/09/23 23:59 07:59 15:59 Intake Total 1390 390 240 Output Total 650 Balance 740 390 240 Laboratory Tests 08/09/23 05:25 08/09/23 05:25 08/08/23 08/09/23 11:28 05:25 WBC 8.4 RBC 3.61 L Hgb 10.9 L Hct 34.3 L MCV 95.0 MCH 30.2 MCHC 31.8 L RDW 12.5 Plt Count 168 MPV 9.9 Immature Gran % (Auto) 0.2 Neut % (Auto) 86.5 H Lymph % (Auto) 7.7 L [place] % (Auto) 5.4 Eos % (Auto) 0.0 Baso % (Auto) 0.2 Lymph # (Auto) 0.64 L [place] # (Auto) 0.5 Eos # (Auto) 0.0 Baso # (Auto) 0.0 Abs Immat Gran (auto) 0.02 Absolute Neuts (auto) 7.2 H Absolute Nucleated RBC 0.000 Nucleated RBC % 0.0 Sodium 138 Potassium 4.4 Chloride 109 H Carbon Dioxide 26 Anion Gap 3 L BUN 11 Creatinine 0.70 Estim Creat Clear Calc 104 Estimated GFR > 60 Glucose 122 H Calcium 8.4 Blood Type O Positive Antibody Screen Negative Post-procedural complaints: none Patient Feedback: Patient satisfied with anesthetic care.
[2023-08-09] MEDS: CALCIUM CARBONATE (TUMS) 500 MG (200 MG ELEMENTAL) PO (09:03)
[2023-08-09] MEDS: medroxyPROGESTERone ACETATE 10 MG TABLET PO (09:04)
[2023-08-09] MEDS: FAMOTIDINE 20 MG TABLET PO (09:04)
[2023-08-09] MEDS: ASPIRIN 81 MG ENTERIC TABLET PO (09:04)
[2023-08-09] MEDS: SENNA/DOCUSATE SODIUM TABLET 2 TAB PO (09:04)
[2023-08-09] MEDS: oxyCODONE/ACETAMINOPHEN (*CRX) 5-325 MG TABLET 1 TABLET PO (09:05)
[2023-08-09] MEDS: polyethylene glycoL 3350 17 GM POWD.PACK PO (09:06)
--- NOTE | 2023-08-09 09:25 | PM.DS ---
DS: Admitting Diagnosis Discharge Date 08/09/23 Admitting Diagnosis 08/09/23 DS: Discharge Diagnosis Discharge Diagnosis (1) Status post total right knee replacement: Code(s): Z96.651 - Presence of right artificial knee joint Status: Acute Plan Postop day 1: Right total knee arthroplasty. Patient tolerated procedure well. No complications. Pain manageable with pain medication. No numbness or tingling. We had a lengthy discussion regarding postoperative wound care, limitations, expectations, and exercises. Patient shows good understanding. She has had initial physical therapy and is tolerating it well. DVT prophylaxis: 81 mg baby aspirin b.i.d. for 14 days. Pain medication: Percocet. Prednisone. Meloxicam Patient has followup appointment with Dr. Wolfe in 3 weeks. DS: Summary Hospital Course Reason for hospitalization: Total knee arthroplasty Hospital Course: Patient tolerated procedure well. Has had initial PT/OT. Status at Discharge Functional status at discharge: uses cane/walker Overall status at discharge: patient is progressing back to baseline Time Spent with Patient Time attestation: Total time spent providing and/or coordinating discharge services: Exam Narrative: 53-year-old overweight female. Resting comfortably in bed. Alert and oriented x3. No acute distress. Wearing compression socks bilaterally. Dressing intact without drainage. Moderate swelling. Mild ecchymosis medially. Mild erythema. No hematoma. Range of motion limited due to pain. Calf nontender. Neurologic status intact. No varicosities. Distal pulses palpable. DS: Data Data Completed and Pending Labs on day of discharge: Labs from last 24 hours 08/09/23 08/08/23 05:25 11:28 WBC 8.4 RBC 3.61 L Hgb 10.9 L Hct 34.3 L MCV 95.0 MCH 30.2 MCHC 31.8 L RDW 12.5 Plt Count 168 MPV 9.9 Immature Gran % (Auto) 0.2 Neut % (Auto) 86.5 H Lymph % (Auto) 7.7 L [place] % (Auto) 5.4 Eos % (Auto) 0.0 Baso % (Auto) 0.2 Lymph # (Auto) 0.64 L [place] # (Auto) 0.5 Eos # (Auto) 0.0 Baso # (Auto) 0.0 Abs Immat Gran (auto) 0.02 Absolute Neuts (auto) 7.2 H Absolute Nucleated RBC 0.000 Nucleated RBC % 0.0 Sodium 138 Potassium 4.4 Chloride 109 H Carbon Dioxide 26 Anion Gap 3 L BUN 11 Creatinine 0.70 Estim Creat Clear Calc 104 Estimated GFR > 60 Glucose 122 H Calcium 8.4 Blood Type O Positive Antibody Screen Negative Discharge Plan Discharge Patient Disposition: Home, Self-Care Discharge Instructions: See green instruction sheets Stand Alone Forms: General Discharge Instructions Follow-up/Referrals: Lizett Ramirez PA [Physician Stereo Equipment Repairer] - Discharge Medications: New meloxicam 15 mg tablet 15 mg PO DAILY Qty: 30 0RF Rx Instructions: Cut in half. Take 1/2 in morning and 1/2 at night. Take with food. Stop if stomach upset. prednisone 5 mg tablet 5 mg PO DAILY 21 Days Qty: 21 0RF aspirin 81 mg tablet,delayed release (DR/EC) 81 mg PO BID 14 Days Qty: 28 0RF oxycodone-acetaminophen 5-325 mg tablet 1 - 2 tablet PO Q4-6H MDD 6 PRN (Reason: pain) Qty: 30 0RF Continued medroxyprogesterone 10 mg tablet 10 mg PO DAILY calcium carbonate 500 mg calcium (1,250 mg) Tablet,Chewable 500 mg PO BID PRN (Reason: Indigestion) Held ibuprofen 800 mg Tablet 800 mg PO TID PRN (Reason: Pain) Hold Instructions: Resume on 09/05/23. Hold while taking Meloxicam acetaminophen [Acetaminophen Extra Strength] 500 mg Tablet 1,000 mg PO Q6H PRN (Reason: Pain) Hold Instructions: Resume on 08/22/23. No more than 4,000 mg in 24 hours. Your pain mendication has Tylenol in it.
[2023-08-09 10:04] VITALS: BP 122/60; PULSE 73; RESP 16; TEMP 36.6; O2SAT 100
== END 2023-08-09 13:00 | disposition home or self-care (01) ==
LOC: ANHSURGERY 11:59 → ANH2MED 16:20
PROVIDERS: Physician Assistant Surgical; Visit Provider Orthopaedic Surgery
PROC: (CPT 27447; principal; 2023-08-08 12:00)
DX: M17.11 Unilateral primary osteoarthritis, right knee (principal); G89.18 Other acute postprocedural pain; M81.0 Age-related osteoporosis without current pathological fracture; E55.9 Vitamin D deficiency, unspecified; Z68.36 Body mass index [BMI] 36.0-36.9, adult
CPT/HCPCS: 27447; 64447; 36415; 73560; 80048; 80307; 82040; 82565; 82947; 83036; 85025; 86850; 86900; 86901; 87641; 97110; 97161; 97165; A9270; C1713; C1776; J0171; J0690; J1170; J1885; J2250; J2270; J2405; J2795; J3010; J7030; J7120; J7512

== ENCOUNTER 2023-09-26 08:08 | Outpatient (CLI) | payer BC, SELFPAY ==
--- NOTE | ~2023-09-26 | XR_ITS ---
Right Knee Technique: AP, lateral, and sunrise views were obtained. Clinical History: Pain COMPARISON: 04/18/2023 Findings: No fracture or dislocation is seen. Status post right knee arthroplasty. No hardware compli cation. Soft tissues are unremarkable. No joint effusion is seen. Impression: No acute abnormality. Status post right knee arthroplasty. No hardware complication seen. Reviewed, dictated and finalized at location M. Impression: No acute abnormality. Status post right knee arthroplasty. No hardware complication seen.
== END 2023-09-26 08:09 | disposition home or self-care (01) ==
LOC: ANHIMG 08:12
PROVIDERS: Visit Provider Orthopaedic Surgery
DX: Z96.651 Presence of right artificial knee joint (principal)
CPT/HCPCS: 73562

== ENCOUNTER 2023-12-09 07:09 | Outpatient (CLI) | payer BC, SELFPAY ==
--- NOTE | ~2023-12-09 | XR_ITS ---
Right Knee Technique: AP, lateral, and sunrise views were obtained. Clinical History: Knee arthroplasty COMPARISON: 524 Findings: No fracture or dislocation is seen. Knee arthroplasty unchanged. Soft tissues are unremarka ble. No joint effusion is seen. Impression: Stable right knee arthroplasty. No acute abnormality seen. Reviewed, dictated and finalized at location . Impression: Stable right knee arthroplasty. No acute abnormality seen.
== END 2023-12-09 07:10 | disposition home or self-care (01) ==
PROVIDERS: Visit Provider Orthopaedic Surgery
DX: Z96.651 Presence of right artificial knee joint (principal)
CPT/HCPCS: 73562